=== PATIENT | female | born 1980 | race Two or more races ===

== ENCOUNTER 2020-04-14 11:59 | Outpatient (CLI) | payer OTHER | END 2020-04-14 13:46 | disposition home or self-care (01) | LOC: MAMO-SONO 11:59 | PROVIDERS: ATTEND Specialist | DX: Z12.31 Encounter for screening mammogram for malignant neoplasm of breast (principal); N63.10 Unspecified lump in the right breast, unspecified quadrant; N63.20 Unspecified lump in the left breast, unspecified quadrant; D25.9 Leiomyoma of uterus, unspecified ==

== ENCOUNTER 2020-11-30 13:48 | Outpatient (CLI) | payer OTHER | END 2020-11-30 14:11 | disposition home or self-care (01) | LOC: RAD 13:48 | PROVIDERS: ATTEND Specialist | DX: E04.1 Nontoxic single thyroid nodule (principal); M77.31 Calcaneal spur, right foot; Z13.1 Encounter for screening for diabetes mellitus; F17.298 Nicotine dependence, other tobacco product, with other nicotine-induced disorders; Z13.220 Encounter for screening for lipoid disorders; H91.90 Unspecified hearing loss, unspecified ear ==

== ENCOUNTER 2020-12-06 08:17 | Outpatient (CLI) | payer OTHER | END 2020-12-06 08:28 | disposition home or self-care (01) | LOC: SONOGRAMA 08:17 → MAMO-SONO 12-07 07:45 | PROVIDERS: ATTEND Specialist | DX: E04.1 Nontoxic single thyroid nodule (principal); M77.31 Calcaneal spur, right foot ==

== ENCOUNTER 2020-12-31 15:03 | Outpatient (CLI) | payer OTHER | END 2020-12-31 15:27 | disposition home or self-care (01) | LOC: SONOGRAMA 15:03 | PROVIDERS: ATTEND Surgery | DX: D24.1 Benign neoplasm of right breast (principal); N60.11 Diffuse cystic mastopathy of right breast; N60.12 Diffuse cystic mastopathy of left breast ==

== ENCOUNTER 2021-03-04 06:42 | Day surgery (SDC) | payer OTHER ==
[~2021-03-04 06:42] MED LIST: NAPRO PO
== END 2021-03-04 17:20 | disposition home or self-care (01) ==
LOC: CIR.AMB 06:42
PROVIDERS: ATTEND Surgery
DX: D24.1 Benign neoplasm of right breast (principal); Z20.822 Contact with and (suspected) exposure to COVID-19

== ENCOUNTER 2021-08-18 09:03 | Outpatient (CLI) | payer OTHER | END 2021-08-18 09:42 | disposition home or self-care (01) | LOC: RAD 09:03 | PROVIDERS: ATTEND Specialist | DX: M25.521 Pain in right elbow (principal) ==

== ENCOUNTER 2022-02-23 07:37 | Outpatient (CLI) | payer OTHER | END 2022-02-23 07:40 | disposition home or self-care (01) | LOC: NUCLEAR 07:37 | PROVIDERS: ATTEND Specialist | DX: I73.9 Peripheral vascular disease, unspecified (principal) ==

== ENCOUNTER 2022-06-01 09:00 | Outpatient (CLI) | payer OTHER | END 2022-06-01 09:02 | disposition home or self-care (01) | LOC: TOM 09:00 | PROVIDERS: ATTEND Specialist | DX: R53.83 Other fatigue (principal); R53.1 Weakness; G44.209 Tension-type headache, unspecified, not intractable; F17.219 Nicotine dependence, cigarettes, with unspecified nicotine-induced disorders ==

== ENCOUNTER 2023-07-09 16:01 | Emergency (ER) | payer OTHER ==
[~2023-07-09] VITALS: Ht 154.9 cm; Wt 81.6 kg
[2023-07-09 19:16] LABS: HEMATOCRIT 39.7 % (36.0-45.00); HEMOGLOBIN 13.8 g/dL (12.0-15.00); MEAN CELL VOLUME 91.4 fL (80.00-100.00); MEAN CORPUSCULAR HEMOGLOBIN 31.8 pg (27.00-32.0); MEAN CORPUSCULAR HGB CONC 34.7 g/dl (32.0-36.0); PLATELET COUNT 199 K/uL (150-450); RED BLOOD COUNT 4.34 M/uL (4.00-6.00); RED CELL DISTRIBUTION WIDTH 13.8 % (11.5-14.5)
== END 2023-07-09 20:40 | disposition home or self-care (01) ==
LOC: ER 16:01
PROVIDERS: General Practice
DX: J06.9 Acute upper respiratory infection, unspecified (principal); Z20.822 Contact with and (suspected) exposure to COVID-19; Z88.4 Allergy status to anesthetic agent; Z88.6 Allergy status to analgesic agent

== ENCOUNTER → 2023-12-31 | Emergency (ER) | payer OTHER ==
[~2023-12-31] VITALS: Ht 162.6 cm; Wt 80.3 kg
== END | disposition left against medical advice (07) ==
LOC: ER 21:32
DX: Z53.21 Procedure and treatment not carried out due to patient leaving prior to being seen by health care provider (principal)